=== PATIENT | male | born 1975 | race Caucasian/White ===

== ENCOUNTER 2017-10-06 17:37 | Emergency (ER) | payer SELFPAY ==
[~2017-10-06 17:37] MED LIST: CEP500 PO; LOR5/325 PO; no meds
[2017-10-06 17:41] VITALS: BP 159/109
--- NOTE | 2017-10-06 18:00 | ER Report ---
History and Physical Time Seen By MD: 17:55 Hx. of Stated Complaint: RETIREMENT CLEARANCE HPI/ROS CHIEF COMPLAINT: [facility] clearance HISTORY OF PRESENT ILLNESS: This is a 42 year old male. He is here with [facility] for [facility] clearance. They have no concerns. He has no health problems, complaints or medications. No pain or injuries. REVIEW OF SYSTEMS: Respiratory: No cough, no dyspnea. Cardiovascular: No chest pain, no palpitations. Gastrointestinal: No vomiting, no abdominal pain. Musculoskeletal: No musculoskeletal pain. Genitourinary: No problems with urination. Allergies: Coded Allergies: No Known Drug Allergies (Verified , 05/02/08) Home Meds Discontinued Reported Medications Acetaminophen/Hydrocodone (Lortab 5/325 Mg) 5 Mg/325 Mg Tab, 1 - 2 EA PO Q4-6H, #12 0 Refills 05/02/08 Cephalexin Monohydrate (Keflex) 500 Mg Cap, 500 MG PO QID, #28 0 Refills 05/02/08 [no meds] No Conflict Check, 0 Refills 05/02/08 Reviewed Nurses Notes: Yes Constitutional Vital Sign - Last 24 Hours 10/06/17 17:41 Temp 97.9 Pulse 99 Resp 16 B/P (MAP) 159/109 Pulse Ox 93 O2 Delivery Room Air Physical Exam General Appearance: The patient is alert, has no immediate need for airway protection and no current signs of toxicity. Eyes: Pupils equal and round no injection. ENT: Normal oral mucosa. Moist mucous membranes. Neck: Neck is supple and non tender. Respiratory: Chest is non tender, lungs are clear to auscultation. Cardiac: regular rate and rhythm Gastrointestinal: Abdomen is soft and non tender, no masses, bowel sounds normal. Musculoskeletal: Extremities have full range of motion. Skin: No rashes or lesions. DIFFERENTIAL DIAGNOSIS: After history and physical exam differential diagnosis was considered for [facility] clearance with no problems. Medical Decision Making ED Course/Re-evaluation ED Course No problems noted at this time. Cleared to [facility] with [facility]. Decision to Disposition Date: Oct 06, 2017 Decision to Disposition Time: 18:04 Depart Departure Latest Vital Signs Vital Signs Date Time Temp Pulse Resp B/P (MAP) Pulse Ox O2 Delivery O2 Flow Rate FiO2 10/06/17 17:41 97.9 99 16 159/109 93 Room Air Impression: Primary Impression: Alcohol intoxication Condition: Improved Disposition: HOME OR SELF-CARE Referrals: ANDREW SEGOVIA MD (PCP) New Scripts No Active Prescriptions or Reported Meds Patient Instructions: Alcohol Intoxication (ED) Problem Qualifiers Primary Impression: Alcohol intoxication Complication of substance-induced condition: uncomplicated Qualified Codes: F10.920 - Alcohol use, unspecified with intoxication, uncomplicated YULIANA STRICKLAND MD Oct 06, 2017 18:00
== END 2017-10-06 18:11 | disposition home or self-care (01) ==
LOC: ER 17:49
DX: F10.920 Alcohol use, unspecified with intoxication, uncomplicated (principal)
CPT/HCPCS: 99283

== ENCOUNTER 2018-05-19 19:39 | Emergency (ER) | payer SELFPAY ==
[2018-05-19 19:41] VITALS: BP 153/106
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
== END 2018-05-19 20:26 ==
LOC: ER 19:42
DX: F10.920 Alcohol use, unspecified with intoxication, uncomplicated (principal); S00.81XA Abrasion of other part of head, initial encounter; S69.92XA Unspecified injury of left wrist, hand and finger(s), initial encounter; S61.209A Unspecified open wound of unspecified finger without damage to nail, initial encounter
CPT/HCPCS: 99281